=== PATIENT | male | born 1960 | race Two or more races ===

== ENCOUNTER → 2020-01-17 | Emergency (ER) | payer OTHER ==
[~2020-01-17] VITALS: Ht 177.8 cm; Wt 86.2 kg
[~2020-01-17] MED LIST: IBUPROFEN600 MG ORAL; Ketorolac 30mg Inj IM ONE; LIDODERM700 M1 TOPIC; ROBAXIN-750750 MG PO
--- NOTE | 2020-01-17 11:44 | NUR ---
ED Nurse Note: Pt ambulated to ED d/t low back pain from work. Pt's skin intact/clean/dry. Per assessment, pt was at work today at 10AM lifting a bucket full of mail when the pain began.
--- NOTE | 2020-01-17 11:45 | NUR ---
ED Nurse Note: Pt ambulated to ED from work d/t how amos
--- NOTE | 2020-01-17 11:45 | NUR ---
Rik oliver in EDM - 01/17/20 at 1224 by DOREEN ED Nurse Note: Pt ambulated to ED from work d/t bryant amos
[2020-01-17 11:52] VITALS: BP 112/64
--- NOTE | 2020-01-17 12:20 | NUR ---
ED Nurse Note: ERPA at bedside.
--- NOTE | 2020-01-17 12:40 | Emergency Room Report ---
History of Present Illness General Chief Complaint: Back Injury Source: Patient Present Illness HPI 59-year-old male presents to the emergency department complaining of 9 out of 10 severity left-sided lower back pain acute onset after lifting a heavy object at work. Patient described bending down using proper body mechanics and picking up a box but then loading it into something that was approximately hip height where he had to bend forward as well. Patient states he had acute onset of his pain. Patient denies saddle anesthesia he denies urinary incontinence or urinary retention. Patient reports he has intermittent pain that radiates down the posterior left leg. He reports he had similar injury years ago but on the right side. Patient denies midline back pain. He reports pain is exacerbated upon sitting or standing still for too long. Patient reports applying pressure to the affected area or walking helps to relieve his symptoms. No other aggravating or relieving factors at this time. Allergies: Coded Allergies: No Known Allergies (Unverified , 01/17/20) Patient History Past Medical History: see triage record Past Surgical History: none Pertinent Family History: none Reviewed Nursing Documentation: PMH: Agreed; PSxH: Agreed Nursing Documentation-PMH Past Medical History: No Stated History Review of Systems All Other Systems: negative except mentioned in HPI Physical Exam Vital Signs Date Time Temp Pulse Resp B/P (MAP) Pulse Ox O2 Delivery O2 Flow Rate FiO2 01/17/20 11:41 97.9 70 19 112/64 (80) 98 Room Air Sp02 EP Interpretation: reviewed, normal General Appearance: no apparent distress, alert, GCS 15, non-toxic Head: normocephalic, atraumatic Eyes: bilateral eye normal inspection, bilateral eye PERRL ENT: hearing grossly normal, normal voice Neck: full range of motion Respiratory: lungs clear, normal breath sounds, speaking full sentences Cardiovascular #1: regular rate, rhythm Musculoskeletal: normal range of motion, gait/station normal, tender - Left lumbar paraspinal and upper gluteal TTP, FROM with exacerbation of pain temporarily in certain flexed positions, no LE weakness, pt. is NVI, no erythema , midline bony ttp, step-offs or obvious deformity. Neurologic: alert, motor strength/tone normal, oriented x3, sensory intact, responsive, speech normal Psychiatric: judgement/insight normal Skin: normal color, normal inspection Medical Decision Making PA Attestation Dr. Veliz Is my supervising Physician whom patient management has been discussed with. Diagnostic Impression: Primary Impression: Lumbosacral strain Qualified Codes: S39.012A - Strain of muscle, fascia and tendon of lower back , initial encounter Additional Impression: Sciatica of left side ER Course 59-year-old male presents to the emergency department complaining of 9 out of 10 severity left-sided lower back pain acute onset after lifting a heavy object at work. Patient described bending down using proper body mechanics and picking up a box but then loading it into something that was approximately hip height where he had to bend forward as well. Patient states he had acute onset of his pain. Patient denies saddle anesthesia he denies urinary incontinence or urinary retention. Patient reports he has intermittent pain that radiates down the posterior left leg. He reports he had similar injury years ago but on the right side. Patient denies midline back pain. He reports pain is exacerbated upon sitting or standing still for too long. Patient reports applying pressure to the affected area or walking helps to relieve his symptoms. No other aggravating or relieving factors at this time. Ddx considered but are not limited to Fracture, dislocation, contusion, epidural abscess, Sprain/Strain/Spasm Vital signs: are WNL, pt. is afebrile H&PE are most consistent with lumbosacral strain w. sciatica of the left side Pt. unable to tolerate straight leg raise. ORDERS: X-ray not required at this time, no spinous process tenderness ED INTERVENTIONS: IM Toradol 30mg. Lidocaine TP DISCHARGE: At this time pt. is stable for d/c to home. Will provide printed patient care instructions, and any necessary prescriptions. Care plan and follow up instructions have been discussed with the patient prior to discharge. Last Vital Signs Date Time Temp Pulse Resp B/P (MAP) Pulse Ox O2 Delivery O2 Flow Rate FiO2 01/17/20 11:52 97.9 19 112/64 98 Room Air 01/17/20 11:41 70 Disposition: HOME, SELF-CARE Condition: Stable Departure Forms: Return to Work Return to Work Date: Jan 21, 2020 Work Restrictions: No Heavy Lifting Other Restrictions: Limited sitting/bending. May return Sooner if Symptoms have resolved. Return to Full Activity: Jan 27, 2020 Patient Instructions: Back Injury Prevention, Lumbosacral Strain, Sciatica, [place] Additional Instructions: Take medications as directed. Follow up with a Primary Care Provider in 3-5 days, even if your symptoms have resolved. Return sooner to ED if new symptoms occur, or current symptoms become worse. Do not drink alcohol, drive, or operate heavy machinery while taking Robaxin ( Muscle Relaxers) as this may cause drowsiness. - Please note that this Emergency Department Report was dictated using 24/[employer] manager technology software, occasionally this can lead to erroneous entry secondary to interpretation by the dictation equipment. Mary Wright Jan 17, 2020 12:40
[2020-01-17 12:58] VITALS: BP 112/64
--- NOTE | 2020-01-17 12:58 | NUR ---
ER DISCHARGE NOTE: Patient is cleared to be discharged per ERMD, pt is aox4, on room air, with stable vital signs. pt was given dc and prescription instructions, pt was able to verbalize understanding, pt id band removed pt is able to ambulate with steady gait. pt took all belongings.
== END | disposition home or self-care (01) ==
LOC: EMR 12:36
DX: S39.012A Strain of muscle, fascia and tendon of lower back, initial encounter (principal); M54.42 Lumbago with sciatica, left side; X58.XXXA Exposure to other specified factors, initial encounter; Y92.9 Unspecified place or not applicable
CPT/HCPCS: 96372; 99283; J1885